=== PATIENT | female | born 1980 | race Caucasian/White ===

== ENCOUNTER 2019-03-14 18:28 | Observation (INO) ==
[2019-03-14 22:19] LABS: Basophils # 0.1 K/mcL (0.0-0.2); Basophils % 0.5 %; Eosinophils # 0.2 K/mcL (0.0-0.6); Eosinophils % 1.8 %; Hematocrit 18.2 % (35.3-44.9); Immature Granulocytes % 0.3 % (0-4); Lymphocytes # 3.2 K/mcL (0.6-4.6); Lymphocytes % 31.2 %; Mean Corpuscular HGB Conc 29.1 g/dL (31.6-35.5); Mean Corpuscular Hemoglobin 19.2 pg (28.0-33.3); Mean Corpuscular Volume 65.9 fL (83.0-100.0); Mean Platelet Volume 9.5 fL (9.4-12.4); Monocytes # 0.6 K/mcL (0.0-1.3); Monocytes % 5.6 %; Neutrophils # 6.2 K/mcL (1.6-8.9); Platelet Count 447 K/mcL (140-400); Red Blood Count 2.76 M/mcL (3.82-4.97); Red Cell Distribution Width 29.3 % (11.5-14.5); Segmented Neutrophils % 60.6 %; White Blood Count 10.2 K/mcL (4.3-11.1)
[2019-03-14 22:29] LABS: Hemoglobin 5.3 g/dL (11.5-15.4)
[2019-03-14 22:42] LABS: Hypochromasia Present (Not Present); Polychromasia 1+ (Not Present)
[2019-03-14 22:44] LABS: Hypersegmented Neutrophils Present (Not Present)
[2019-03-14] MEDS ORDERED: 0.9 % Sodium Chloride 250 ML ONE (23:07)
[2019-03-15] MEDS: Ringers Solution, Lactated 1,000 ML IV SCH ×3 (01:22→05:36)
[2019-03-15 06:11] LABS: Basophils % 0.4 %; Eosinophils # 0.2 K/mcL (0.0-0.6); Eosinophils % 1.6 %; Hematocrit 20.6 % (35.3-44.9); Hemoglobin 6.2 g/dL (11.5-15.4); Immature Granulocytes % 0.3 % (0-4); Lymphocytes # 2.8 K/mcL (0.6-4.6); Lymphocytes % 30.3 %; Mean Corpuscular HGB Conc 30.1 g/dL (31.6-35.5); Mean Corpuscular Hemoglobin 20.9 pg (28.0-33.3); Mean Corpuscular Volume 69.4 fL (83.0-100.0); Mean Platelet Volume 9.8 fL (9.4-12.4); Monocytes # 0.5 K/mcL (0.0-1.3); Neutrophils # 5.7 K/mcL (1.6-8.9); Platelet Count 391 K/mcL (140-400); Red Blood Count 2.97 M/mcL (3.82-4.97); Red Cell Distribution Width 29.5 % (11.5-14.5); Segmented Neutrophils % 62.4 %; White Blood Count 9.2 K/mcL (4.3-11.1)
[2019-03-15 06:44] LABS: Anisocytosis 1+ (Not Present); Hypochromasia Present (Not Present); Platelet Estimate Normal (Normal); Poikilocytosis 1+ (Not Present); Target Cells 1+ (Not Present); Tear Drop Cells 1+ (Not Present)
[2019-03-15] MEDS ORDERED: 0.9 % Sodium Chloride 500 ML ONE (06:55)
[2019-03-15 17:39] LABS: Hematocrit 25.6 % (35.3-44.9); Mean Corpuscular HGB Conc 30.9 g/dL (31.6-35.5); Mean Corpuscular Hemoglobin 21.7 pg (28.0-33.3); Mean Corpuscular Volume 70.3 fL (83.0-100.0); Mean Platelet Volume 9.5 fL (9.4-12.4); Nucleated Red Blood Cells 0.3 /100 WBC (0); Platelet Count 417 K/mcL (140-400); Red Blood Count 3.64 M/mcL (3.82-4.97); Red Cell Distribution Width 28.7 % (11.5-14.5); White Blood Count 11.9 K/mcL (4.3-11.1)
[2019-03-15 17:40] LABS: Hemoglobin 7.9 g/dL (11.5-15.4)
[2019-03-15 18:07] LABS: Lymphocytes # 3.8 K/mcL (0.6-4.6); Neutrophils # 7.1 K/mcL (1.6-8.9)
[2019-03-15 18:08] LABS: Anisocytosis 1+ (Not Present); Platelet Estimate Normal (Normal); Poikilocytosis 1+ (Not Present)
[2019-03-15 18:20] VITALS: BP 136/86
[2019-03-15] MEDS ORDERED: FLU Vac QV 19-20 (6Month+)/PF 0.5 ML SYRINGE IM ONE (18:28)
== END 2019-03-15 19:20 | disposition home or self-care (01) ==
LOC: 1NENUPED
PROVIDERS: ADMIT Obstetrics & Gynecology; ATTEND Obstetrics & Gynecology